=== PATIENT | male | born 1950 | race Caucasian/White ===

== ENCOUNTER 2024-07-19 08:40 | Outpatient (AMB) | payer MEDICARE, SELFPAY ==
--- NOTE | 2024-07-19 08:43 | A.OFFVIS_ITS ---
Vital Signs 07/19/24 08:45 Height 5 ft 10 in Weight 160 lb BMI 23.0 Intake Visit Reasons: OTR DRIVER, L olecranon bursitis per ED provider. Intake Note: Joe is a 73 yo right hand dominant male who presents today for an evaluation of left olecranon bursitis. Patient reports left elbow pain began Monday evening, then noticed it was swollen, red, hot. He states there is a scab but unsure how he obtained the wound . He went to [facility] ED but only x-rays were obtained. He was prescribed Keflex and Doxycycline outpatient. Pain has subsided as well as the swelling. Denies prior injuries or on going signs of infection. 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 : Details: Patient is a 73-year-old male who presents for evaluation of left elbow redness, pain, swelling, ongoing since approximately Monday evening. Patient states that he did not notice that he had a small abrasion over the olecranon of the left elbow, and states that he is unsure as to how or when this occurred. The patient reports that he attempted to be evaluated at [facility] ED, but states that they were approximately 100 patient is waiting to be evaluated, so he reached out to a friend of his who is an ED provider at [facility], who placed him on Keflex and doxycycline and told him he should be evaluated by Orthopedics. Today, the patient reports that his symptoms have improved significantly since Monday, and that his erythema and edema are greatly reduced at this time. Patient also reports no pain or tenderness in the area at this time. No other acute complaints or concerns at this time. [facility] Social History (Updated 07/19/24 @ 08:46 by SOFÍA Narayan) Current occupation: rt handed Review of Systems Const All systems reviewed & are unremarkable except as noted in HPI and below Physical Exam Vital Signs: BMI result Body Mass Index 23.0 Extrem Other: On inspection, there is noted to be significant edema and mild erythema over the patient's left elbow, particularly over the olecranon process There is noted to be an old laceration, that appears to be scabbed over and healing well Patient reports no tenderness to palpation about the olecranon of the left elbow There is a noted area of fluctuance over the left olecranon, consistent with inflammation of the olecranon bursa Patient is able to flex the left elbow to 140 degrees without difficulty Patient is able to extend the elbow fully to 0 degrees without difficulty Distal sensation intact Capillary refill brisk Assessment & Plan Assessment & Plan (1) Septic olecranon bursitis of left elbow: Code(s): M71.122 - Other infective bursitis, left elbow Category: Medical Plan 1. Left septic olecranon bursitis Date of onset 07/15/24 Patient is educated about this condition Patient is educated about the typical recovery course Patient is provided with 2 Lawrence bandages to apply gentle compression to the left elbow to encourage resorption of excess fluid in the left olecranon bursa Patient is educated that he should finish his current course of antibiotics as prescribed Patient is educated that this can take weeks to months for full resolution of swelling Patient is amenable to this plan Patient will follow-up as needed with any acute concerns Coding Level of Care Code New Pt Level 3 (82563) Diagnoses Septic olecranon bursitis of left elbow M71.122
[2024-07-19 08:45] VITALS: BMI 23.0
== END 2024-07-19 09:07 | disposition home or self-care (01) ==
DX: M71.122 Other infective bursitis, left elbow (principal)
CPT/HCPCS: 99203

== ENCOUNTER → 2024-07-19 08:40 | Outpatient (BNVA) | payer MEDICARE, SELFPAY | DX: M71.122 Other infective bursitis, left elbow (principal) | CPT/HCPCS: 99202 ==